=== PATIENT | male | born 1965 | race Caucasian/White ===

== ENCOUNTER → 2019-04-06 13:11 | Outpatient (CLI) | payer OTHER, MEDICAID, SELFPAY ==
--- NOTE | 2019-04-06 | DI.CT.S_ITS ---
PROCEDURE: CT LUNG LOW DOSE SCREENING INDICATIONS: SCREENING FOR LUNG CANCER TECHNIQUE: Noncontrast 2.0-2.5 mm thick sections acquired from the pulmonary apices to the posterior costophrenic angles. 7 mm thick coronal and sagittal MIP reformats were then acquired. A low radiation dose technique was utilized. COMPARISON: None. FINDINGS: Image quality: Diagnostic, given the low radiation dose technique. Lungs and pleura: Emphysematous change with pulmonary hyperexpansion appears present. No pulmonary fibrosis or alveolitis is seen, nor is there bronchiectasis or bronchitis. Throughout the lung parenchyma no mass lesions suggestive of early primary lung carcinoma is found. Mediastinum: Heart size is normal. No pericardial effusion. No mediastinal adenopathy by size criteria. Thoracic aorta and central pulmonary arteries are normal in size. Esophagus is normal in caliber. No hiatal hernia. Bones and chest wall: No suspicious bony lesions. No vertebral body compression fractures. No axillary or supraclavicular adenopathy by size criteria. Thyroid gland is not well-seen by this noncontrast technique.. Abdomen: Visualized upper abdomen solid organs and bowel loops appear normal in the absence of contrast. IMPRESSION: COPD, emphysematous change, but no evidence of early lung carcinoma at this time. LUNG-RADS 1; followup low dose noncontrast screening lung CT in 1 year is recommended. Dictated by: Dong Acevedo M.D. on 04/06/2019 at 15:01 Approved by: Dong Acevedo M.D. on 04/06/2019 at 15:04
== END ==
PROVIDERS: PCP Student in an Organized Health Care Education/Training Program; Visit Provider Internal Medicine Critical Care Medicine
DX: Z12.2 Encounter for screening for malignant neoplasm of respiratory organs (principal); J44.9 Chronic obstructive pulmonary disease, unspecified
CPT/HCPCS: 71250